=== PATIENT | male | born 1970 | race African-American/Black ===

== ENCOUNTER 2018-11-26 20:57 | Emergency (ER) | payer SELFPAY ==
[2018-11-26 21:08] VITALS: BP 151/83; PULSE 99; TEMP 98.1; BMI 33.7
[2018-11-26] MEDS ORDERED: KETOROLAC TROMETHAMINE 60 MG/2 ML VIAL IM ONE (21:09)
--- NOTE | 2018-11-26 21:09 | PDOC ---
Rapid Medical Evaluation Chief Complaint: Back Pain Time Seen by Provider: 11/26/18 21:05 Medical Evaluation: 11/26/18 21:06 I have performed a brief in-person evaluation of this patient. The patient presents with a chief complaint of: low back pain s/p heavy lifting yesterday and feeling a pop in lower back. Denies radiculopathy. Pertinent physical exam findings: A&O x 3. moderate point TTP over lower lumbar spine of L3-4 I have ordered the following:Toradol 60mg IM. x-ray of lumbosacral The patient will proceed to the ED for further evaluation. Discharge Disposition - Diagnosis Lumbago Qualifiers: Chronicity: acute Back pain laterality: midline Sciatica presence: without sciatica Qualified Code(s): M54.5 - Low back pain - Discharge Dispostion Condition at time of disposition: Stable - Referrals - Patient Instructions - Post Discharge Activity
[2018-11-26] MEDS ORDERED: LIDOCAINE PATCH REMOVAL MC SCH (22:00)
[2018-11-26] MEDS ORDERED: LIDOCAINE 5% TOPICAL PATCH TP ONE (22:12)
--- NOTE | 2018-11-26 22:14 | PDOC ---
History of Present Illness - General Chief Complaint: Back Pain Stated Complaint: BACK PAIN Time Seen by Provider: 11/26/18 21:05 History Source: Patient Exam Limitations: No Limitations Past History - Travel Traveled outside of the country in the last 30 days: No Close contact w/someone who was outside of country & ill: No - Past Medical History Allergies/Adverse Reactions: Allergies Allergy/AdvReac Type Severity Reaction Status Date / Time No Known Allergies Allergy Verified 11/26/18 21:17 Home Medications: Ambulatory Orders Cyclobenzaprine HCl [Flexeril -] 10 mg PO HS #10 tablet 11/26/18 Ibuprofen 800 mg PO TID #30 tablet 11/26/18 Ofloxacin Otic [Floxin Otic -] 10 drop OT BID #200 drops 11/26/18 - Suicide/Smoking/Psychosocial Hx Smoking Status: No Smoking History: Current every day smoker Number of Cigarettes Smoked Daily: 3 Information on smoking cessation initiated: Yes Hx Alcohol Use: Yes (Social) Drug/Substance Use Hx: No Review of Systems - Review of Systems Able to Perform ROS?: Yes Comments:: 11/26/18 22:13 CONSTITUTIONAL: Absent: fever, chills, diaphoresis, generalized weakness, malaise, loss of appetite GASTROINTESTINAL: Absent: abdominal pain, abdominal distension, nausea, vomiting, diarrhea, constipation, melena, hematochezia GENITOURINARY: Absent: dysuria, frequency, urgency, hesitancy, hematuria, flank pain, genital pain MUSCULOSKELETAL: Present: low back pain Absent: arthralgia, joint swelling SKIN: Absent: rash, itching, pallor NEUROLOGIC: Absent: headache, focal weakness or paresthesias, dizziness, unsteady gait, seizure, mental status changes, bladder or bowel incontinence PSYCHIATRIC: Absent: anxiety, depression, suicidal or homicidal ideation, hallucinations. Is the patient limited Fijian proficient: No *Physical Exam - Vital Signs Last Vital Signs Temp Pulse Resp BP Pulse Ox 98.1 F 99 H 20 151/83 99 11/26/18 21:02 11/26/18 21:02 11/26/18 21:02 11/26/18 21:02 11/26/18 21:02 - Physical Exam Comments: 11/26/18 22:13 GENERAL: Well developed, well nourished. Awake and alert. No acute distress. HEENT: Normocephalic, atraumatic. PERRLA, EOMI. No conjunctival pallor. Sclera are non- icteric. Moist mucous membranes. Oropharynx is clear. NECK: Supple. Full ROM. No JVD. Carotid pulses 2+ and symmetric, without bruits. No thyromegaly. No lymphadenopathy. CARDIOVASCULAR: Regular rate and rhythm. No murmurs, rubs, or gallops. Distal pulses are 2+ and symmetric. PULMONARY: No evidence of respiratory distress. Lungs clear to auscultation bilaterally. No wheezing, rales or rhonchi. ABDOMINAL: Soft. Non-tender. Non-distended. No rebound or guarding. No organomegaly. Normoactive bowel sounds. MUSCULOSKELETAL Normal range of motion at all joints. No bony deformities or tenderness. No CVA tenderness. EXTREMITIES: No cyanosis. No clubbing. No edema. No calf tenderness. SKIN: Warm and dry. Normal capillary refill. No rashes. No jaundice. NEUROLOGICAL: Alert, awake, appropriate. Cranial nerves 2-12 intact. No deficits to light touch and temperature in face, upper extremities and lower extremities. No motor deficits in the in face, upper extremities and lower extremities. Normoreflexic in the upper and lower extremities. Normal speech. Toes are down- going bilaterally. Gait is normal without ataxia. PSYCHIATRIC: Cooperative. Good eye contact. Appropriate mood and affect. Medical Decision Making - Medical Decision Making 11/26/18 22:13 -Pt with TTP of the L paraspinous muscles, L3-L5, with palpable knot consistent with muscle spasm. -No trauma, or fever. No saddle anesthesia or bladder/bowel incontinence. No CVA tenderness. -Pt is neurologically intact on exam with no focal findings. -Toradol given with relief of symptoms -DC home. Ortho follow up given for if symptoms do not resolve. -I discussed the physical exam findings, ancillary test results and final diagnoses with the patient. I answered all of the patient's questions. The patient was satisfied with the care received and felt comfortable with the discharge plan and treatment plan. The Patient agrees to follow up with the primary care physician/specialist within 24-72 hours. Return precautions were given. *DC/Admit/Observation/Transfer Diagnosis at time of Disposition: Lumbago Qualifiers: Chronicity: acute Back pain laterality: midline Sciatica presence: without sciatica Qualified Code(s): M54.5 - Low back pain Otitis externa Qualifiers: Otitis externa type: unspecified type Chronicity: acute Laterality: left Qualified Code(s): H60.502 - Unspecified acute noninfective otitis externa, left ear - Discharge Dispostion Disposition: HOME Condition at time of disposition: Stable Decision to Admit order: No - Prescriptions Prescriptions: Cyclobenzaprine HCl [Flexeril -] 10 mg PO HS #10 tablet Ibuprofen 800 mg PO TID #30 tablet - Referrals Referrals: Tristen Palma MD, [facility] [Staff Physician] - - Patient Instructions Printed Discharge Instructions: DI for Low Back Pain, DI for Otitis Externa Additional Instructions: You have low back pain due to a muscle spasm. Please take ibuprofen 800 mg 3 times a day not to exceed 3000 mg a day. You were also prescribed Flexeril. Please take this medication every 8 hours for the first day. Then take the medication before you go to bed. Do not drive after taking this medication as it may make you sleepy. You may use warm compresses on your back to help with her symptoms. Please follow-up with your primary care doctor. If your symptoms do not resolve in 3-5 days, follow-up with orthopedics. A referral has been provided for you. You have otitis externa. This is an infection of the ear canal. Please use the eardrops once a day as directed for the next 10 days to the affected ear. Please take the amoxicillin twice a day for 10 days. Do not put anything in the ear, including q-tips. Keep the ear dry. Do not go swimming for the next 2 weeks. Pat the ear dry with a towel after showering. Follow up with ENT if your symptoms are not improving in 7-10 days Return to the ED if you have worsening pain, fevers, dizziness or if you have any changes in your symptoms. Return to the emergency department if you have worsening back pain, bladder or bowel incontinence, numbness and tingling in her legs, changes in the way you walk, or any new or worsening symptoms. - Post Discharge Activity Forms/Work/School Notes: Back to Work
[2018-11-26] MEDS ORDERED: KETOROLAC TROMETHAMINE 60 MG/2 ML VIAL ONE (22:42)
[2018-11-26] MEDS ORDERED: LIDOCAINE 5% TOPICAL PATCH ONE (22:42)
== END 2018-11-26 23:05 | disposition home or self-care (01) ==
LOC: JERFT 20:57
PROC: 3E0233Z Introduction of Anti-inflammatory into Muscle, Percutaneous Approach (ICD-10-PCS; principal; 2018-11-26)
DX: M54.5 Low back pain (principal); M62.830 Muscle spasm of back; H60.502 Unspecified acute noninfective otitis externa, left ear
CPT/HCPCS: 72100-TC-FY; 99281-25

== ENCOUNTER 2019-01-11 13:34 | Emergency (ER) | payer SELFPAY | END 2019-01-11 15:11 | disposition home or self-care (01) | LOC: JERFT 13:34 ==